=== PATIENT | female | born 1955 | race Caucasian/White ===

== ENCOUNTER → 2016-10-26 | Outpatient (CLI) | payer OTHER ==
[~2016-10-26] MED LIST: ASPIRIN81 M2 PO; CELEXA20 MG PO; ESTRACE1 MG PO; LOMOTIL WHITE2.5 MG DOB; MULTI VITAMIN1 EACH PO; PANTOPRAZOLE SO40 MG PO; PREMARIN; SPIRIVA18 MCG INH
--- NOTE | ~2016-10-26 | CR63 ---
[facility] A Service of [facility] & [facility] RADIOLOGY TEXT RESULTS PATIENT: BARBIE LOWERY LOCATION: [facility] : 59 UNIT #: [id number] AGE: [address]: SYEDA ARROYO APRN SEX: F ORDER DR: [id number] [facility] [address] [place], [place] [address] [id number] O MR#: [id number] Acc #: [id number] NAME: BARBIE LOWERY : 1955 SEX: F STUDY DATE/TIME: 10/26/2016 12:31 UNIT: [facility] ROOM: STUDY DESCRIPTION: CR Chest 2 View Attending Physician: Syeda Arroyo Referring Physician: Syeda Arroyo Ordering Physician: Syeda Arroyo A.P.R.N. Primary Care Physician: Syeda Arroyo MEDICAL IMAGING REPORT This report is preliminary unless electronic signature is present EXAM Chest 10/26/2016. [facility] HISTORY 61-year-old patient with chronic obstructive pulmonary disease. History of pneumonia. Current cough, short of air, weakness, recent fall with posterior mid rib pain symptoms x2 weeks. The patient also indicates short of breath Comparison chest 11/07/2013. FINDINGS Two-view chest demonstrates normal and stable heart size. Hilar structures and mediastinal contours are preserved. Bilateral lungs are clear and the costophrenic angles are preserved. The bony thorax appears to be intact with no visible displaced rib fracture at this time. IMPRESSION Negative chest Dictated by... Ramos Shelton M.D. THIS IS AN ELECTRONICALLY VERIFIED REPORT Ramos Shelton M.D. at 10/26/2016 4:01 PM GABRIELA/shahzad TD: 10/26/2016 15:13 JOB #: [id number] MEDICAL IMAGING REPORT Page 1 of 1 COPY
--- NOTE | ~2016-10-26 | CR211 ---
[facility] A Service of [facility] & [facility] RADIOLOGY TEXT RESULTS PATIENT: BARBIE LOWERY LOCATION: [facility] : 59 UNIT #: [id number] AGE: [address]: SYEDA SAMUELS APRN SEX: F ORDER DR: [id number] [facility] [address] [place], [place] [address] [id number] O MR#: [id number] Acc #: [id number] NAME: BARBIE LOWERY : 1955 SEX: F STUDY DATE/TIME: 10/26/2016 12:31 UNIT: [facility] ROOM: STUDY DESCRIPTION: CR Ribs Uni 2 View W PA Ch Rt Attending Physician: Syeda Samuels Referring Physician: Syeda Samuels Ordering Physician: Len VickPHollyRAlex Primary Care Physician: Syeda Samuels MEDICAL IMAGING REPORT This report is preliminary unless electronic signature is present EXAM Right rib series with PA chest. HISTORY Patient fell two weeks ago and has right lower rib pain. FINDINGS A PA view of the chest and oblique views of the right ribs were obtained. The heart size and vascularity are normal and the lungs are clear and the bones appear normal. IMPRESSION Normal right rib series and PA chest. No rib fractures are identified. Dictated by... Ricardo Pandey M.D. THIS IS AN ELECTRONICALLY VERIFIED REPORT Ricardo Pandey M.D. at 10/27/2016 11:55 AM IVA/sahhzad TD: 10/27/2016 08:20 JOB #: [id number] MEDICAL IMAGING REPORT Page 1 of 1 COPY
== END | disposition home or self-care (01) ==
LOC: CRAD 11:49
DX: J44.0 Chronic obstructive pulmonary disease with (acute) lower respiratory infection (principal)
CPT/HCPCS: 71020; 71101